=== PATIENT | female | born 1960 | race Caucasian/White ===

== ENCOUNTER 2016-07-01 17:49 | Emergency (ER) | payer OTHER ==
[~2016-07-01] VITALS: Wt 67.5 kg
[~2016-07-01 17:49] MED LIST: CALC-600 PO; FERR325C PO; IBUP-1542 PO; MULT1TAB59 PO; OFLO5DRO7 LEFT EAR
[2016-07-01 19:26] LABS: ADD SCAN DIFF NO
[2016-07-01 19:35] LABS: BASOPHILS % 0.5 % (0.0-2.0); EOSINOPHILS # 0.2 10^3/ul (0.0-0.5); EOSINOPHILS % 1.9 % (0.0-7.0); HEMATOCRIT 39.8 % (37.0-47.0); HEMOGLOBIN 13.5 g/dl (12.0-16.0); LYMPHOCYTES # 2.1 10^3/ul (0.8-2.9); LYMPHOCYTES % 26.8 % (15.0-51.0); MEAN CORPUSCULAR HEMOGLOBIN 28.7 pg (29.0-33.0); MEAN CORPUSCULAR HGB CONC 33.9 g/dl (32.0-37.0); MEAN CORPUSCULAR VOLUME 84.7 fl (82.0-101.0); MEAN PLATELET VOLUME 10.4 fl (7.4-10.4); MONOCYTE # 0.6 10^3/ul (0.3-0.9); MONOCYTES % 7.9 % (0.0-11.0); NEUTROPHIL # 4.8 10^3/ul (1.6-7.5); NEUTROPHILS % 62.6 % (39.0-77.0); PLATELET COUNT 311 10^3/UL (140-415); WHITE BLOOD COUNT 7.7 10^3/ul (4.8-10.8)
[2016-07-01 19:39] LABS: ADD UMIC YES; URINE BILIRUBIN (Dip) NEGATIVE (NEGATIVE); URINE BLOOD (Dip) 2+ (NEGATIVE); URINE COLOR LT. YELLOW (YELLOW); URINE GLUCOSE (Dip) NEGATIVE (NEGATIVE); URINE KETONES (Dip) NEGATIVE (NEGATIVE); URINE LEUKOCYTE ESTERASE (Dip) 3+ (NEGATIVE); URINE NITRITE (Dip) NEGATIVE (NEGATIVE); URINE TOTAL PROTEIN (Dip) NEGATIVE (NEGATIVE); URINE UROBILINOGEN (Dip) 0.2 E.U./dL (0.1-1.0)
[2016-07-01 19:52] LABS: ALBUMIN 4.7 g/dl (3.3-4.9); POTASSIUM 4.2 mmol/L (3.5-5.1)
[2016-07-01 19:54] LABS: CREATININE 0.59 mg/dl (0.44-1.00)
[2016-07-01 19:55] LABS: ALBUMIN/GLOBULIN RATIO 1.34; CALCIUM 9.9 mg/dl (8.4-10.2); TOTAL PROTEIN 8.2 g/dl (6.1-8.1)
[2016-07-01 20:03] LABS: TRANSITIONAL EPI CELLS,URINE MODERATE
[2016-07-01 20:04] LABS: BACTERIA,URINE FEW
[2016-07-01] MEDS ORDERED: KETOROLAC 30 MG INJ IV STA (20:07)
--- NOTE | 2016-07-01 20:07 | RADRPT ---
PROCEDURE: Limited abdominal sonogram. CLINICAL INDICATION: Abdominal pain. TECHNIQUE: Multiple real-time images were acquired of the patient's abdomen and retroperitoneum ut ilizing a high resolution transducer. COMPARISON: None FINDINGS: The liver is echogenic and measures 16.3 cm in length. The hepatic and portal veins are patent. Th e gallbladder wall measures 2.3 mm. There is no evidence of cholelithiasis. The common bile duct m easures 3.8 mm. The inferior vena cava is patent. The right kidney measures 9.9 cm in length. The left kidney and spleen are not evaluated. There is no free fluid in the abdomen. The abdominal aorta is not evaluated. IMPRESSION: 1. Hepatomegaly with fatty infiltration of the liver. No evidence of cholelithiasis. Normal common bile duct. RPTAT:AAJJ Physician Wilda Date Time Electronically viewed and signed by Physician Wilda on 07/01/2016 20:07 /
[2016-07-01] MEDS ORDERED: CIPR500T4 PO (20:12)
[2016-07-01] MEDS ORDERED: TRAM50TA2 PO (20:12)
[2016-07-01] MEDS ORDERED: IBUP-1542 PO (20:12)
--- NOTE | 2016-07-01 20:14 | ERD ---
ER Documentation Chief Complaint Date/Time DATE: 07/01/16 TIME: 20:13 Chief Complaint R SIDED FLANK PAIN X 2 WEES HPI This 55-year-old female presents with right-sided flank pain for last 2 weeks. It is intermittent migratory. It is primarily in the right flank that radiates to right upper quadrant occasionally to the epigastric area. She did have some dysuria last week but she took some homeopathic or herbal medicine and it resolved. She denies any fevers, vomiting or relation to food. She denies any lower abdominal pain. ROS All systems reviewed and are negative except as per history of present illness. Medications Home Meds Active Scripts Tramadol HCl (Tramadol HCl) 50 Mg Tablet, 50 MG PO Q4 Y for PAIN, #15 TAB Prov:CRIS KING MD 07/01/16 Ibuprofen* (Motrin*) 600 Mg Tab, 600 MG PO Q6, #20 TAB Prov:CRIS KING MD 07/01/16 Ciprofloxacin Hcl* (Ciprofloxacin Hcl*) 500 Mg Tablet, 500 MG PO BID for 10 Days , TAB Prov:CRIS KING MD 07/01/16 Ibuprofen* (Ibuprofen*) 600 Mg Tablet, 600 MG PO Q8, #20 TAB Prov:ELEAZAR CLEMENS 01/11/16 Ofloxacin* (Floxin* Otic) 0.3% -10 Ml Soln, 5 DROP LEFT EAR BID for 5 Days, BOTTLE Prov:GUS GUILLERMO PA-C 10/02/15 Reported Medications Calcium (Calcium) 500 Mg Tablet, 500 MG PO DAILY 09/14/12 Multivitamins* (Multivitamins*) 1 Tab Tablet, 1 TAB PO DAILY 09/14/12 Ferrous Sulfate (Iron) 325 Mg Capsr, 325 MG PO BID 09/14/12 Allergies Allergies: Coded Allergies: No Known Drug Allergies (Verified Allergy, Mild, 03/18/14) PMhx/Soc History of Surgery: Yes (BTL) Anesthesia Reaction: No Hx Neurological Disorder: No Hx Respiratory Disorders: No Hx Cardiac Disorders: Yes (HTN) Hx Psychiatric Problems: No Hx Miscellaneous Medical Probl: Yes (DM) Hx Alcohol Use: No Hx Substance Use: No Hx Tobacco Use: No Smoking Status: Never smoker Physical Exam Vitals Vital Signs Date Time Temp Pulse Resp B/P Pulse Ox O2 Delivery O2 Flow Rate FiO2 07/01/16 17:51 98.0 65 18 174/85 99 Physical Exam Const: [] Head: Atraumatic Eyes: Normal Conjunctiva ENT: Normal External Ears, Nose and Mouth. Neck: Full range of motion..~ No meningismus. Resp: Clear to auscultation bilaterally Cardio: Regular rate and rhythm, no murmurs Abd: Soft, non tender, non distended. Normal bowel sounds Skin: No petechiae or rashes Back: No midline or flank tenderness Ext: No cyanosis, or edema Neur: Awake and alert Psych: Normal Mood and Affect Result Diagram: 07/01/16191807/01/161918 Results 24 hrs Laboratory Tests Test 07/01/16 19:19 07/01/16 19:28 Alanine Aminotransferase (ALT/SGPT) 40IU/L Albumin 4.7g/dl Albumin/Globulin Ratio 1.34 Alkaline Phosphatase 76IU/L Anion Gap 18 Aspartate Amino Transf (AST/SGOT) 30IU/L Basophils # 0.010^3/ul Basophils % 0.5% Blood Urea Nitrogen 16mg/dl Calcium Level 9.9mg/dl Carbon Dioxide Level 28mmol/L Chloride Level 100mmol/L Creatinine 0.59mg/dl Direct Bilirubin 0.00mg/dl Eosinophils # 0.210^3/ul Eosinophils % 1.9% Globulin 3.50g/dl Glucose Level 108mg/dl Hematocrit 39.8% Hemoglobin 13.5g/dl Indirect Bilirubin 0.0mg/dl Lipase 118U/L Lymphocytes # 2.110^3/ul Lymphocytes % 26.8% Mean Corpuscular Hemoglobin 28.7pg Mean Corpuscular Hemoglobin Concent 33.9g/dl Mean Corpuscular Volume 84.7fl Mean Platelet Volume 10.4fl Monocytes # 0.610^3/ul Monocytes % 7.9% Neutrophils # 4.810^3/ul Neutrophils % 62.6% Nucleated Red Blood Cells # 0.010^3/ul Nucleated Red Blood Cells % 0.0/100WBC Platelet Count 05478^3/UL Potassium Level 4.2mmol/L Red Blood Count 4.7010^6/ul Red Cell Distribution Width 13.0% Sodium Level 142mmol/L Total Bilirubin 0.0mg/dl Total Protein 8.2g/dl White Blood Count 7.710^3/ul Urine Bacteria FEW Urine Bilirubin NEGATIVE Urine Clarity CLEAR Urine Color LT. YELLOW Urine Glucose NEGATIVE% Urine Hemoglobin 2+ Urine Ketones NEGATIVE Urine Leukocyte Esterase 3+ Urine Microscopic RBC 10-25/HPF Urine Microscopic WBC >50/HPF Urine Nitrite NEGATIVE Urine Specific [place] 1.010 Urine Total Protein NEGATIVE Urine Transitional Epithelial Cells MODERATE Urine Urobilinogen 0.2 E.U./dL Urine pH 5.5 Current Medications Medications (Trade) Dose Ordered Sig/Gina Route PRN Reason Start Time Stop Time Status Last Admin Dose Admin Ceftriaxone Sodium (Rocephin) 50 ml @ 100 mls/hr ONCE ONCE IVPB 07/01/16 20:30 07/01/16 20:59 Ketorolac Tromethamine (Toradol) 30 mg ONCE STAT IV 07/01/16 20:07 07/01/16 20:09 DC Procedures/MDM CBC is normal CMP is normal. Lipase is normal and urine shows positive leukocytes and hemoglobin. HCG is negative. Right upper quadrant ultrasound patient has right flank pain of uncertain etiology with signs of UTI. This may be the cause of her pain. Signs or symptoms are not consistent with pneumonia, acute abdomen, hepatobiliary disease, sepsis. She will be treated with Cipro at home and ibuprofen and tramadol instructions for clear fluids. Patient was given Rocephin 1 g IV and Toradol 30 mg IV here in the ED and was stable throughout the ED course. The patient was stable with no new complaints during the ER course. Clinically, there is no current evidence to suggest meningitis, sepsis, acute abdomen, pneumonia, acute coronary syndrome, pulmonary embolism, or any other emergent condition appearing to require further evaluation or hospitalization. The patient should certainly return for any new or worsening symptoms per the aftercare instructions. They should otherwise follow-up with her primary care doctor for reevaluation this week. Departure Diagnosis: Primary Impression: UTI (urinary tract infection) Urinary tract infection type: acute cystitis Hematuria presence: without hematuria Qualified Code: N30.00 - Acute cystitis without hematuria Additional Impression: Flank pain Condition: Stable Patient Instructions: Understanding Urinary Tract Infections (UTIs), Flank Pain , Uncertain Cause Additional Instructions: Blood and ultrasound normal today. Urine shows signs of infection which may be cause of pain. Drink plenty of fluids at home. Recheck for fevers, vomiting, new or worsening symptoms with primary care doctor this week. CRIS KING MD Jul 01, 2016 20:14
[2016-07-01] MEDS ORDERED: CEFTRIAXONE 1 GM/50 ML (PMX) 50 ML IVPB ONE (20:30)
[2016-07-01 20:49] VITALS: BP 132/72; PULSE 78; RESP 18; TEMP 98.5
== END 2016-07-01 20:49 | disposition home or self-care (01) ==
LOC: FTE 17:49
DX: N30.00 Acute cystitis without hematuria (principal); E11.9 Type 2 diabetes mellitus without complications; I10 Essential (primary) hypertension
CPT/HCPCS: 76705; 80053; 81001; 81003; 83690; 85025; J0696; J1885; 36415; 96374; 96375

== ENCOUNTER 2018-08-31 18:46 | Emergency (ER) | payer OTHER ==
[~2018-08-31] VITALS: Ht 160 cm; Wt 66.7 kg
[~2018-08-31 18:46] MED LIST changes: +CIPR500T4 PO; +TRAM50TA2 PO
[2018-08-31 18:54] VITALS: Ht 160 cm; Wt 66.7 kg
[2018-08-31] MEDS ORDERED: ALBUTEROL 0.083% (NEB) 2.5 MG/3 ML AMP HHN STA (20:15)
[2018-08-31] MEDS ORDERED: ALBUTEROL/IPRATROPIUM (NEB) 3 ML AMP HHN STA (20:15)
[2018-08-31] MEDS ORDERED: KETOROLAC 60 MG INJ IM STA (20:19)
[2018-08-31] MEDS ORDERED: DEXAMETHASONE 10 MG/ML 1 ML INJ IM ONE (20:30)
[2018-08-31] MEDS ORDERED: PROMETHAZINE/DM (CUP) PO ONE (20:30)
--- NOTE | 2018-08-31 20:51 | ERD ---
ER Documentation Chief Complaint Chief Complaint C/O COUGH X8 DAYS, RUIZ, ST AND SOB X4 DAYS HPI History of Present Illness: 57-year-old female with no known medical history coming in today with complaint of cold symptoms and shortness of breath. Associated symptoms includes nonproductive cough for 8 days, headache to forehead, irritation, and shortness of breath that developed 3 days ago that is worse when trying to sleep. Denies sick contacts. Patient reports she feels better when she wears a mask over her face, reports that she does not cough as much. At home pharmacological/nonpharmacological treatment for symptoms: Denies Denies social concerns; Denies recent foreign travel ROS All systems reviewed and are negative except as per history of present illness. Medications Home Meds Active Scripts Dextromethorphan Hb-Promethazine Hcl* (Promethazine DM* Syrup) 473 Ml Syrup, 5 ML PO Q6 PRN for COUGH, #60 ML Prov:SUSAN MIKE NP 08/31/18 Cetirizine Hcl* (Cetirizine Hcl*) 10 Mg Tablet, 10 MG PO DAILY for COUGH/ALLERGIES/SORE THROAT, #30 TAB Prov:SUSAN MIKE NP 08/31/18 Albuterol Sulfate* (Ventolin HFA*) 18 Gm Hfa.aer.ad, 2 PUFF INHALATION Q6H PRN for SHORTNESS OF BREATH, #1 INHALER Prov:SUSAN MIKE NP 08/31/18 Tramadol HCl (Tramadol HCl) 50 Mg Tablet, 50 MG PO Q4 PRN for PAIN, #15 TAB Prov:CRIS KING MD 07/01/16 Ibuprofen* (Motrin*) 600 Mg Tab, 600 MG PO Q6, #20 TAB Prov:CRIS KING MD 07/01/16 Ciprofloxacin Hcl* (Ciprofloxacin Hcl*) 500 Mg Tablet, 500 MG PO BID for 10 Days, TAB Prov:CRIS KING MD 07/01/16 Ibuprofen* (Ibuprofen*) 600 Mg Tablet, 600 MG PO Q8, #20 TAB Prov:ELEAZAR CLEMENS MD 01/11/16 Ofloxacin* (Floxin* Otic) 0.3% -10 Ml Soln, 5 DROP LEFT EAR BID for 5 Days, BOTTLE Prov:GUS GUILLERMO PA-C 10/02/15 Reported Medications Calcium (Calcium) 500 Mg Tablet, 500 MG PO DAILY 09/14/12 Multivitamins* (Multivitamins*) 1 Tab Tablet, 1 TAB PO DAILY 09/14/12 Ferrous Sulfate (Iron) 325 Mg Capsr, 325 MG PO BID 09/14/12 Allergies Allergies: Coded Allergies: No Known Drug Allergies (Verified Allergy, Mild, 03/18/14) PMhx/Soc History of Surgery: Yes (BTL) Anesthesia Reaction: No Hx Neurological Disorder: No Hx Respiratory Disorders: No Hx Cardiac Disorders: Yes (HTN) Hx Psychiatric Problems: No Hx Miscellaneous Medical Probl: Yes (DM) Hx Alcohol Use: No Hx Substance Use: No Hx Tobacco Use: No Smoking Status: Never smoker FmHx Family History: diabetes, coronary disease Physical Exam Vitals Vital Signs Date Temp Pulse Resp B/P (MAP) Pulse Ox O2 O2 Flow FiO2 Time Delivery Rate 08/31/18 98.5 72 18 115/65 97 Room Air 21:51 (82) 08/31/18 76 20 97 21 20:49 08/31/18 98.7 61 21 165/77 95 18:54 (106) Physical Exam Const: No acute distress Head: Atraumatic, no tenderness to palpation over sinus cavities. Eyes: Normal Conjunctiva ENT: Normal External Ears, Nose and Mouth. Nasal mucosa with erythema, turbinates swollen. Neck: Full range of motion. No meningismus. Resp: Clear to auscultation bilaterally. No crackles, rales, rhonchi, wheezing. Cardio: Regular rate and rhythm, no murmurs. Tenderness to palpation over chest wall. Abd: Soft, non tender, non distended. Normal bowel sounds Skin: No petechiae or rashes Back: No midline or flank tenderness Ext: No cyanosis, or edema. No pitting edema. Neur: Awake and alert Psych: Normal Mood and Affect Results 24 hrs Laboratory Tests Test 08/31/18 20:34 POC Beta HCG, Qualitative NEGATIVE Current Medications Medications Dose Sig/Gina Start Time Status Last (Trade) Ordered Route PRN Stop Time Admin Dose Reason Admin Albuterol 2.5 mg ONCE STAT 08/31/18 DC 08/31/18 (Proventil HHN 20:15 20:47 0.083% (Neb)) 08/31/18 20:19 Albuterol/ 3 ml ONCE STAT 08/31/18 DC Ipratropium HHN 20:15 (Duoneb) 08/31/18 20:19 8 mg ONCE ONCE 08/31/18 DC 08/31/18 Dexamethasone IM 20:30 20:42 (Decadron) 08/31/18 20:31 Promethazine 5 ml ONCE ONCE 08/31/18 DC 08/31/18 HCl/ PO 20:30 20:45 Dextromethorp 08/31/18 20:31 snyder (Phenergan-Dm ) Ketorolac 60 mg ONCE STAT 08/31/18 DC 08/31/18 Tromethamine IM 20:19 20:42 (Toradol) 08/31/18 20:20 Procedures/MDM ED course includes a thorough examination and history. Medications: Dexamethasone, nebulizer treatments including DuoNeb and albuterol, antihistamine and cough suppressant promethazine DM Imaging: Chest x-ray, EKG Labs: --- Low suspicion for life-threatening medical emergency. Low suspicion for coronary pulmonary emergency that requires hospitalization or immediate surgical intervention. Patient hemodynamically stable and afebrile. Low concern for infectious process. EKG @ 2242: Rate/Rhythm: Sinus bradycardia, ventricular rate 56 QRS, ST, T-waves: No changes consistent w/ acute ischemia Impression: No evidence of ischemia or arrhythmia Otherwise healthy patient presenting with constellation of symptoms likely representing uncomplicated allergic sinusitis/, shortness of breath as characterized by history, physical exam findings, radiologic findings. Chest x- ray x-ray unremarkable, no acute process is noted on radiology report. No respiratory distress, otherwise relatively well appearing and nontoxic. Patient reporting significant improvement after breathing treatments and medications given during ER visit. Extreme desire to go home. Patient educated on diagnoses, prescriptions, follow-up care, return precautions. Strict return precautions given for worsening condition; questions answered discharge. Disposition for discharge with followup in 2 days with PCP/clinic. Departure Diagnosis: Primary Impression: Allergic rhinosinusitis Allergic rhinitis trigger: unspecified Allergic rhinitis seasonality: unspecified Qualified Codes: J30.9 - Allergic rhinitis, unspecified Additional Impression: Shortness of breath Condition: Stable SUSAN MIKE NP Aug 31, 2018 20:51
[2018-08-31 21:51] VITALS: BP 115/65; PULSE 72; RESP 18
[2018-08-31] MEDS ORDERED: ALBU18HF INHALATION (22:39)
[2018-08-31] MEDS ORDERED: D-ME473S2 PO (22:39)
[2018-08-31] MEDS ORDERED: CETI10TA19 PO (22:39)
== END 2018-08-31 23:10 | disposition home or self-care (01) ==
LOC: FTE 18:46
DX: J30.9 Allergic rhinitis, unspecified (principal); I10 Essential (primary) hypertension; E11.9 Type 2 diabetes mellitus without complications
CPT/HCPCS: 71046; 81025; 93005; 94664; 96372; J1100; J1885; Z7502; Z7610